=== PATIENT | male | born 1995 | race Asian ===

== ENCOUNTER 2024-04-08 00:35 | Emergency (ER) | payer OTHER, SELFPAY ==
[2024-04-08 00:58] VITALS: BP 125/82
--- NOTE | 2024-04-08 03:58 | ED.SKININJ ---
HPI-Injury
General
Chief Complaint: Bite
Source: patient
Exam Limitations: none
Time Seen by Provider: 04/08/24 03:54
History of Present Illness-Injury
Is pt an associate of [facility]?: No
Initial Injury comments:
See MDM
Past History
Past History
ED Past Medical History: None
ED Past Surgical History: None
Social History
Tobacco: Non-smoker
Personal: Single
Living: with family
Employment: Student
Family History
Family History: Other (Noncontributory)
Phy Exam
Physical Exam
Physical Exam:
See MDM
Course
Orders/Labs/Results
Orders:
Orders
04/08/24 03:58
Amoxicillin 875 mg/Clav 125 mg [Augmentin 875 mg/125 mg] 1 tablet PO NOW STA
Tetanus/Diphth/Acelpertussis [Adacel] 0.5 ml IM .ONCE ONE
Vital Signs
Initial and Last Documented VS:
Initial Vital Signs
Temp Pulse Resp BP Pulse Ox
99.2 F 73 20 125/82 97
04/08/24 00:58 04/08/24 00:58 04/08/24 00:58 04/08/24 00:58 04/08/24 00:58
Last Documented Vital Signs
Temp Pulse Resp BP Pulse Ox
99.2 F 73 20 125/82 98
04/08/24 00:58 04/08/24 00:58 04/08/24 00:58 04/08/24 00:58 04/08/24 00:58
MDM/Problems Addressed
Differential Diagnosis Includes:
HPI and MDM Narrative:
28-year-old male presenting for evaluation of multiple superficial cat scratches to his face. Patient is concerned he could have rabies. He is currently fostering feral cats in his garage. He picked 1 up and it scratched his face. Patient is
unsure about his tetanus shot.
We discussed that the rabies transmission is through saliva. I will update his tetanus and will start him on Augmentin given the cat scratches. Since the cat is in his garage, we discussed keeping an eye on the cat for the next 2 weeks or so and
to bring it directly to the vet if it dies suddenly or develops respiratory or swallowing issue
Physical exam
General: Well appearing and non-toxic
HEENT: protecting airway
Neck: appears supple
CV: No evidence of cyanosis
Resp: No accessory muscle use
Abd: Non-distended
Extremities: No deformities
Neuro: alert
Psych: Normal affect
Skin: Extremely superficial scratches to his right cheek and right lower lip
Problems Addressed including Acute and Chronic Conditions affecting care:
1. Cat scratch
Acuity: acute
Prognosis: stable
Details: Will update tetanus and start Augmentin
Drug therapy (if applicable): OTC meds, please see d/c instruction regarding Rx drugs
Amount and/or Complexity of Data Reviewed
Clinical info obtained from: Patient
External data reviewed: N/A
Labs I independently reviewed (but not limited to): N/A
Radiology: N/A
Pulse Ox: not hypoxic
EKG independently reviewed: N/A
[facility] Director: N/A
Critical Care: N/A
Risk of Complication:
Social Determinants of health: Good social support
Discussed with other providers: N/A
Escalation of Care includes Admit/Obs: After being observed in the Emergency Department, pt stable for discharge.
Occasional wrong word or 'sound a like' substitutions may have occurred due to the inherent limitations of voice recognition software. Read the chart carefully and recognize, using context, where substitutions have occurred.
*Critical Care Note
Total Time (30-74mins, 75-104mins- exclusive of procedures): Not Applicable
ED Attending Note
-
Portions of this chart may have been created with voice recognition software.� Occasional wrong word or��sound alike� substitutions may have occurred due to the inherent limitations of voice recognition software.
Discharge Plan
Departure
Patient Disposition: Home (Routine Discharge)
Date of Disposition: 04/08/24
Time of Disposition: 04:01
Patient with high blood pressure during this ER visit?: No
Discharge Problem:
Cat scratch of face
Prescriptions:
New
amoxicillin-pot clavulanate 875-125 mg tablet
1 tab PO BID Qty: 14 0RF
No Action
tamsulosin 0.4 MG capsule
0.4 mg PO DAILY Qty: 14 0RF
multivitamin 1 EACH tablet
1 ea PO DAILY
hydrocodone-acetaminophen 1 EACH tablet
1 ea PO Q4HPRN PRN (Reason: moderate pain) Qty: 12 0RF
ketorolac 10 MG tablet
10 mg PO QID Qty: 12 0RF
ondansetron 4 MG tablet,disintegrating
4 mg PO QIDPRN PRN (Reason: nausea/vomiting) Qty: 20 0RF
Activity Restrictions/Additional Instructions:
Watch for signs of infection: fever over 100.5', increasing pain, red streaks around wound, swelling, or increasing drainage of pus. If any of these happen, return to ED promptly. Make sure that you take all your antibiotics as directed and finish
your prescription even if you feel better before the bottle is empty
If the cats unexpectedly or develop breathing or swallowing issues, bring it to the vet immediately for rabies testing.
Interventions
Interventions:
*Risk Screen - Suicide Last Done: 04/08/24 00:58
*General Assessment Last Done: 04/08/24 00:58
*Neglect/Abuse Screening Last Done: 04/08/24 00:58
ED- Fall Risk Assessment Last Done: 04/08/24 00:58
*ED COVID-19 Vaccine History Last Done: 04/08/24 00:58
Discharge Date and Time
Print Language: BENGALI
[2024-04-08] MEDS: AUGMENTIN 875 MG/125 MG 1 TABLET PO (04:44)
[2024-04-08] MEDS: ADACEL 0.5 ML IM (04:44)
[2024-04-08 05:04] VITALS: BP 105/63
== END 2024-04-08 05:07 | disposition home or self-care (01) ==
LOC: EMR 00:35
PROVIDERS: EMERGENCY PHYSICIAN Student in an Organized Health Care Education/Training Program; FAMILY PHYSICIAN Family Medicine
DX: S00.81XA Abrasion of other part of head, initial encounter (principal); W55.03XA Scratched by cat, initial encounter; Z23 Encounter for immunization
CPT/HCPCS: 99282; 90471; 90715

== ENCOUNTER 2024-12-13 16:12 | Inpatient (IN) | payer OTHER, SELFPAY ==
[2024-12-13] VITALS (9 sets, daily range): BP systolic 107–144; BP diastolic 65–97; BMI 24.8
--- NOTE | 2024-12-13 12:58 | ED.GENMED ---
History of Present Illness
General
Chief Complaint: Abdominal Pain
Source: patient and family
Exam Limitations: none
Time Seen by Provider: 12/13/24 12:52
History of Present Illness
History of Present Illness:
29-year-old male woke with sudden left lower quadrant pain about 9 AM. No radiation to the back. No vomiting. No urinary symptoms or change in bowels. No history of similar pain. He does have a remote history of kidney stones however. No
preceding pain management
Past History
Past History
ED Past Medical History: None
ED Past Surgical History: None
Social History
Tobacco: Non-smoker
Personal: Single
Living: with family
Employment: Student
Family History
Family History: Other (Noncontributory)
Review of Systems
Review of Systems
All Other Systems: Not applicable
Constitutional: Denies fever
ABD/GI: Denies vomiting, diarrhea, bloody stools or black stools
: Reports no symptoms
Phy Exam
Physical Exam
Physical Exam:
GENERAL: Alert and oriented in no apparent distress, but appears moderately uncomfortable
EYE: Orbits normal.
NECK: Supple
CARDIAC: Regular rate and rhythm without any obvious murmurs.
LUNGS: Clear breath sounds,normal
ABDOMEN: Soft, no distention. Decreased bowel sounds however. Moderate tenderness left lower quadrant. No rebound or guarding no mass or hernia.
: Testicles normal. Nontender.
NEUROLOGICAL: Alert and oriented , grossly non-focal
SKIN: Warm and dry, no rash or lesion, no discoloration, skin intact.
MUSCULOSKELETAL: No edema,no deformity.Good color
PSYCH: Normal and appropriate interaction.
Course
Orders/Labs/Results
Orders:
Orders
12/13/24 12:58
IV Insert/Care/Rem.- Treatment PRN
0.9% Sodium Chloride 1000 ml [Nss] 1,000 ml IV BOLUS
12/13/24 13:07
Complete Blood Count/With Diff Urgent
Comprehensive Metabolic Panel Urgent
Lipase Urgent
Urinalysis Reflex To Culture Urgent
Date Specimen was Collected: 12/13/24
Time Specimen was Collected: 13:00
Urine Microscopic Reflex Cult Urgent
Urine Culture Urgent
DERIC Source: U
Specimen Description:
Date Specimen was Collected: 12/13/24
Time Specimen was Collected: 13:00
12/13/24 13:10
Ondansetron Injectable [Zofran] 4 mg .ROUTE .STK-MED ONE
12/13/24 13:11
Ketorolac [Toradol] 15 mg .ROUTE .STK-MED ONE
Ketorolac [Toradol] 15 mg IV NOW STA
Ondansetron Injectable [Zofran] 4 mg IV NOW STA
12/13/24 13:12
CT Abd/pel Without Iv Or Oral Urgent
Comment:
Reason For Exam: Sudden left lower quadrant pain
Ondansetron Injectable [Zofran] 4 mg IV NOW STA
12/13/24 14:01
0.9% Sodium Chloride 1000 ml [Nss] 1,000 ml IV BOLUS
Cefepime HCl [Maxipime] 2,000 mg IV NOW STA
12/13/24 14:22
Blood Culture Q30M
DERIC Source: Blood/Venous
Specimen Description:
Blood Culture Q30M
DERIC Source: Blood/Venous
Specimen Description:
12/13/24 15:15
Admit/Transfer Patient As Directed
Co-Sign Provider:
Level of Care: Inpatient admission
Assign to:: Medical/Surgical
Physician / Group: katharine
Diagnosis: ureter stone/UTI
Reason for Hospitalization: ureter stone
UTI
Expected length of stay greater than two midnights?: Yes
ELOS- Estimated Length of Stay in days: 3
I certify the patient meets the requirements for IP care: Yes
Code Status As Directed
Resuscitation Status: Full Code
PRN Pain Medication Management As Directed
May give lesser potent ordered pain med per pt: Yes
preference::
Protocol:: Medication orders for pain may be administered in a
manner that supports deferring to patient preference
when the pt is:
- Requesting an ordered lesser potent pain medication.
Least to most potent pain medications are defined
as: acetaminophen < NSAID < tramadol < opioids
(morphine, oxycodone, hydromorphone).
- Requesting a lesser dose of the same medication IF
ORDERED.
- Requesting a less intrusive route of administration
if both routes are prescribed by the provider (PO <
IV).
12/13/24 17:06
0.9% Sodium Chloride 1000 ml [Nss] 1,000 ml IV 80 mls/hr
Bisacodyl [Dulcolax] 10 mg RECTAL [id number] PRN
Docusate W/Senna [Senokot-S] 1 tablet PO BIDPRN PRN
Polyethylene Glycol Powder [Miralax] 17 grams PO DAILYPRN PRN
12/13/24 17:06
UROLOGY CONSULT Routine
Consulting Provider: Vikram Toro
Was physician already notified: Yes
Activity As Directed
Activity Level: As Tolerated
Pneumatic Compression Sleeves As Directed
Type: Knee high
Strain Urine As Directed
Vital Signs As Directed
Frequency: Per unit guidelines
DX Deep Vein Thrombosis Video Routine
12/14/24 Breakfast
NPO
Allow oral meds: Yes
Allow clear liquids: No
Basic Metabolic Panel IN AM
Complete Blood Count/No Diff IN AM
12/15/24 06:00
Basic Metabolic Panel IN AM
12/16/24 06:00
Basic Metabolic Panel IN AM
Abnormal Lab Results
12/13/24
13:07
WBC 12.5 H 10^3/uL
(4.8-10.8)
MCH 31.5 H pg
(27.0-31.0)
Absolute Neuts (auto) 10.5 H 10^3/uL
(1.4-6.5)
Absolute Lymphs (auto) 1.1 L 10^3/uL
(1.2-3.4)
Absolute Monos (auto) 0.7 H 10^3/uL
(0.1-0.6)
Neutrophils % 84.5 H %
(42.2-75.2)
Lymphocytes % 8.7 L %
(20.5-51.1)
Carbon Dioxide 21 L mmol/L
(22-30)
Creatinine 1.4 H mg/dL
(0.7-1.3)
Glucose 110 H mg/dl
(70-99)
Total Protein 8.7 H g/dl
(6.3-8.2)
Albumin 5.1 H g/dl
(3.5-5.0)
Urine Ketones 3+ A
(Negative)
Ur Occult Blood Reflex 4+ A
(Negative)
Urine Nitrite (Reflex) Positive A
(Negative)
Urine Bilirubin 1+ A
(Negative)
Leukocyte Esterase Rfl 2+ A
(Negative)
Urine RBC >100 A /HPF
(0-2)
Urine Bacteria (Reflex) Moderate A
(Negative)
Urine Albumin (Reflex) 4+ A
(Neg - Trace)
12/13/24 13:07
12/13/24 13:07
Vital Signs
Initial and Last Documented VS:
Initial Vital Signs
Temp Pulse Resp BP Pulse Ox
97.7 F 67 17 124/76 99
06/17/25 12:32 12/13/24 12:32 12/13/24 12:32 12/13/24 12:32 12/13/24 12:32
Last Documented Vital Signs
Temp Pulse Resp BP Pulse Ox
98.5 F 85 16 115/76 99
12/13/24 17:22 12/13/24 17:22 12/13/24 17:22 12/13/24 17:22 12/13/24 17:22
MDM/Problems Addressed
Differential Diagnosis Includes:
Patient with sudden onset of symptoms. Because of this suddenness I am relatively suspicious of a kidney stone. History of kidney stones. However he is more tender than I would expect purely from a kidney stone. Would have to consider
diverticulitis perforation etc. Workup in progress.
*Pulse Oximetry
Patient hypoxic: no (99%)
*Critical Care Note
Total Time (30-74mins, 75-104mins- exclusive of procedures): Not Applicable
Data Reviewed
Review of Other/Old Records Reveals: Labs, Radiology Studies (Previous kidney stone) and Operative Reports (Colonoscopy report)
Update Note
Update Note:
1310... Patient clearly has gross hematuria very likely this is a kidney stone issue with history and behavior pain. Will give Toradol Zofran changed to plain CT scan.
1405.... Patient rechecked. Appears much more comfortable. However urinalysis appears positive for UTI. Relatively high suspicion for kidney stone will give a dose of cefepime check blood cultures pending CT scan
1500... 3 mm obstructing stone with a positive urine. Urology and hospitalist contacted. Family updated
ED Attending Note
-
Portions of this chart may have been created with voice recognition software.� Occasional wrong word or��sound alike� substitutions may have occurred due to the inherent limitations of voice recognition software.
Discharge Plan
Departure
Patient Disposition: Admit
Date of Disposition: 12/13/24
Time of Disposition: 15:01
Presentation/result/management discussed w/ accepting MD/DO: Urology
Discharge Problem:
Obstructing kidney stone, Urinary tract infection
Interventions
Interventions:
*Risk Screen - Suicide Last Done: 12/13/24 12:33
*General Assessment Last Done: 12/13/24 12:33
*Neglect/Abuse Screening Last Done: 12/13/24 12:33
*ED- Fall Risk Assessment Last Done: 12/13/24 12:45
*ED COVID-19 Vaccine History Last Done: 12/13/24 12:33
*Nursing Disposition Last Done: 12/13/24 17:29
EJ-Xliurk-Iiyqrkfbxf Assessment Last Done: 12/13/24 12:45
Discharge Date and Time
Discharge Date/Time: 12/13/24 17:30
[2024-12-13] MEDS: ZOFRAN 4 MG IV (13:12)
[2024-12-13] MEDS: TORADOL 15 MG IV (13:13)
[2024-12-13] MEDS: NSS 1000 IV ×2 (13:13→14:13)
[2024-12-13 13:23] LABS: % Basophils 0.4 % (0-2); % Eosinophils 0.3 % (0-6); % Immature Granulocytes 0.2 % (0-0.5); % Lymphocytes 8.7 % (20.5-51.1); % Monocytes 5.9 % (1.7-9.3); % Neutrophils 84.5 % (42.2-75.2); Absolute Basophils 0.1 10^3/uL (0-0.2); Absolute Lymphocytes 1.1 10^3/uL (1.2-3.4); Absolute Monocytes 0.7 10^3/uL (0.1-0.6); Absolute Neutrophils 10.5 10^3/uL (1.4-6.5); Hematocrit 47.8 % (39.0-52.0); Hemoglobin 16.9 g/dL (13.0-18.0); Mean Corp Hgb Conc. 35.4 g/dL (33.0-37.0); Mean Corpuscular Hgb 31.5 pg (27.0-31.0); Mean Corpuscular Volume 89.2 fL (80.0-94.0); Mean Platelet Volume 9.1 fL (7.4-10.4); Nucleated Red Blood Cells % 0 % (-); Platelet Count 236 10^3/uL (130-400); Red Blood Cell Count 5.36 10^6/uL (4.70-6.10); Red Cell Dist. Width 12.5 % (11.5-14.5); White Blood Cell Count 12.5 10^3/uL (4.8-10.8)
[2024-12-13 13:36] LABS: Urine Albumin 4+ (Neg - Trace); Urine Bilirubin 1+ (Negative); Urine Character Cloudy (Clear); Urine Color Brown; Urine Glucose Negative (Negative); Urine Ketone 3+ (Negative); Urine Leukocyte 2+ (Negative); Urine Nitrite Positive (Negative); Urine Occult Blood 4+ (Negative); Urine Specific Gravity 1.025 (<1.030); Urine Urobilinogen 1+ (Neg - 1+)
[2024-12-13 13:42] LABS: ALT (SGPT) 17 U/L (0-50); AST (SGOT) 21 U/L (17-59); Albumin 5.1 g/dl (3.5-5.0); Alkaline Phosphatase 115 U/L (38-126); Blood Urea Nitrogen 15 mg/dl (9-20); Calcium 10.1 mg/dl (8.4-10.2); Carbon Dioxide 21 mmol/L (22-30); Chloride 107 mmol/L (98-107); Glucose 110 mg/dl (70-99); Lipase 62 U/L (23-300); Potassium 3.9 mmol/L (3.5-5.1); Sodium 141 mmol/L (135-145); Total Bilirubin 1.2 mg/dl (0.2-1.3); Total Protein 8.7 g/dl (6.3-8.2); eGFR > 60.00
[2024-12-13] MEDS: MAXIPIME 2000 MG IV (14:12)
[2024-12-13 14:50] LABS: Urine Bacteria Moderate (Negative); Urine Red Blood Cell >100 /HPF (0-2)
[2024-12-13 14:51] LABS: Urine Squamous Cell 0-2 /LPF (Few); Urine White Cell 0-2 /HPF (0-5)
--- NOTE | 2024-12-13 15:04 | HPS.HSE ---
Family Physician
-
Family Physician:
Chief Complaint
-
left flank pain
History of Present Illness
29-year-old male with PMH for kidney stones, migraines presented to us with left lower quadrant pain about 9 AM. No radiation to the back. he vomited once. he had blood urine this morning. Patient denied any dysuria, urinary frequency or urgency.
Patient denied any fever, chills, headache, dizzy or syncope. Patient denied any chest pain or short of breath. Patient denied any diarrhea.
CT with impression of ureteral stones. However noted to have positive urinalysis. Patient received a dose of IV cefepime in the ER. Admitting for further management
Medical History
Past Medical History
Past Medical History: Reports Other
Additional Past Medical History:
Kidney stone\\
Migraines
Past Surgical History: Reports None
Social History
Tobacco: Non-smoker
Alcohol: Occasional
Drug: None
Living: With Family
Family History
Family History: Not pertinent
Allergies / Home Medications
Allergies reflects when Allergies were last updated in [facility].
Home Medications with original date entered in [facility]
Allergy/Medication List:
Allergies
Allergy/AdvReac Type Severity Reaction Status Date / Time
No Known Allergies Allergy Verified 12/13/24 12:32
Home Medications
erenumab-aooe 140 mg/mL subcutaneous auto-injector (Aimovig Autoinjector) 140 mg SC QMONTH 12/13/24
Review of Systems
-
Constitutional: Reports No Symptoms
EENT: Reports No Symptoms
Respiratory: Reports No Symptoms
Cardiac: Reports No Symptoms
Abdomen/GI: Reports Other (Left lower quadrant)
: Reports Bleeding
Musculoskeletal: Reports No Symptoms
Skin: Reports No Symptoms
Neurological: Reports No Symptoms
Endocrine: Reports No Symptoms
Hematologic/Lymphatic: Reports No Symptoms
Psych: Reports No Symptoms
Physical Exam
Vital Signs
Vital Signs
Temp Pulse Resp BP Pulse Ox
97.7 F 67 17 122/68 100
12/13/24 12:32 12/13/24 12:32 12/13/24 12:32 12/13/24 14:00 12/13/24 14:15
Physical Exam
General: Well Developed, Well Nourished and No Apparent Distress
HEENT: NormoCephalic, Moist mucous membranes and Atraumatic
Respiratory: Clear
Cardiac: S1/S2 and Regular Rhythm; No Murmur or Rub
GI: Soft, Non Tender, Non Distended and Normal Bowel Sounds; No Organomegaly
Rectal: Deferred by Provider
Musculoskeletal: No Clubbing, No Cyanosis and No Edema
Skin: No Rash
Neuro: AO x 3 and Nonfocal/grossly intact
Psych: Calm
Laboratory Results
-
12/13/24 13:07
12/13/24 13:07
Laboratory Results
Total Bilirubin 1.2 mg/dl (0.2-1.3) 12/13/24 13:07
AST 21 U/L (17-59) 12/13/24 13:07
ALT 17 U/L (0-50) 12/13/24 13:07
Alkaline Phosphatase 115 U/L (38-126) 12/13/24 13:07
Lipase 62 U/L (23-300) 12/13/24 13:07
Data Reviewed
-
CT Scan: Report Reviewed by me
Lab Data: Labs Reviewed by me
Impression/Plan
-
#3mm left ureter stone/UTI
-wbc 12.5
-CT abdomen pelvis with 3 mm calculus in the proximal left ureter with mild left renal collecting system dilatation and minimal left perinephric stranding.Small nonobstructing left renal calculus.
- IV cefepime continue
- Blood culture sent from ER
-will keep patient NPO
-hydrate with fluids
-Tylenol prn for fever or pain
-Dilaudid prn for pain
-strain urine
-keep patient NPO
- Urology consulted
#acute kidney injury likely dehydration
-fluids continued
-BMP n am
#History of migraine
-on erenumab as outpatient
# DVT prophylaxis SCDs
-
# CODE STATUS
-Full code
--- NOTE | 2024-12-13 15:15 | HP.FOC2 ---
Focused History & Physical
Chief Complaint
HPI:
Chief Complaint: Left Ureteral Stone; suspected UTI
HPI / Indication for Planned Procedure: ED not: '29-year-old male woke with sudden left lower quadrant pain about 9 AM. No radiation to the back. No vomiting. No urinary symptoms or change in bowels. No history of similar pain. He does have a
remote history of kidney stones'
Relevant Past Medical History: Other (kidney stone; migraines)
Relevant Social History: Negative
Relevant Family History: Negative
Relevant Past Surgical History: Negative
Medication
See Medication form for detailed medications: Yes
Medication List (including Herbals & OTC):
erenumab-aooe 140 mg/mL subcutaneous auto-injector (Aimovig Autoinjector) 140 mg SC QMONTH 12/13/24
Medications Reviewed: Yes
Allergies and Reactions
Patient has Allergies: No
Noted Allergies and Reactions:
Allergy/AdvReac Type Severity Reaction Status Date / Time
No Known Allergies Allergy Verified 12/13/24 12:32
Pertinent Physical Exam
All Other Systems: Negative
Head/Neck: Normal
Lungs: Normal
Heart: Normal
Abdomen: Normal
Extremities: Normal
Neurological: Normal
Diagnosis / Assessment
Left Ureteral Stone
suspected UTI w/o sign of sepsis
Plan / Procedure
OR if stone fails to pass or sepsis develops
--- NOTE | 2024-12-13 15:56 | W.PN.UPDATE ---
Update Note
Progress Note Update
This is an addendum to H&P written by Mary Bowers on 12/13/2024. �Patient seen and examined independently with [employer].
29-year-old male past medical history of migraines, kidney stones, presenting with left lower quadrant pain since this morning. �Vomiting. �Bloody urine.
Labs show leukocytosis. �Creatinine 1.4.
CT abdomen pelvis shows approximate 3 mm calculus in the proximal left ureter with mild left renal collecting system dilatation and minimal left perinephric stranding.
Urinalysis shows +2 leukocyte Estrace, 0-2 white cells, positive nitrates, cloudy urine.
Patient with obstructive left ureteral calculus with surrounding inflammation.
IV fluids. �Blood cultures pending. �Urine culture pending. �Ceftriaxone.� Strain urine. Urology consulted. �N.p.o. past midnight.
[2024-12-13] MEDS: NORMOSOL-R/PLASMALYTE-A 1000 IV ×2 (17:40→23:47)
[2024-12-13] MEDS: STERILE WATER FOR INJECTION 10 ML IV (20:24)
[2024-12-13] MEDS: HEPARIN 5000 UNITS SC (20:24)
[2024-12-13] MEDS: ROCEPHIN 1000 MG IV (20:24)
[2024-12-13] MEDS: FLOMAX 0.4 MG PO (20:26)
--- NOTE | 2024-12-14 04:23 | DOWNTIME ---
Addendum entered by Leola Lea RN 12/14/24 14:20:
Correction: Downtime was 12/14/2024 from 0100 to 12/14/2024 at 0415
Original Note:
There was a [employer] Downtime on 12/13/2024 from 0100 to 12/14/2024 at 0415. Downtime documentation of patient's care, including medication administrations, has been reconciled in the electronic record per guidelines. Refer to the
patient's paper chart under the miscellaneous tab to see printed paper medication records and downtime forms.
[2024-12-14 07:22] LABS: Hematocrit 40.4 % (39.0-52.0); Hemoglobin 14.1 g/dL (13.0-18.0); Mean Corp Hgb Conc. 34.9 g/dL (33.0-37.0); Mean Corpuscular Hgb 31.5 pg (27.0-31.0); Mean Corpuscular Volume 90.2 fL (80.0-94.0); Mean Platelet Volume 9.4 fL (7.4-10.4); Platelet Count 213 10^3/uL (130-400); Red Blood Cell Count 4.48 10^6/uL (4.70-6.10); Red Cell Dist. Width 12.6 % (11.5-14.5); White Blood Cell Count 10.7 10^3/uL (4.8-10.8)
[2024-12-14 07:31] VITALS: BP 114/69
[2024-12-14 07:52] LABS: Blood Urea Nitrogen 12 mg/dl (9-20); Calcium 8.8 mg/dl (8.4-10.2); Carbon Dioxide 21 mmol/L (22-30); Chloride 112 mmol/L (98-107); Estimated Creatinine Clearance 98 ml/min; Glucose 91 mg/dl (70-99); Potassium 3.7 mmol/L (3.5-5.1); Sodium 143 mmol/L (135-145); eGFR > 60.00
[2024-12-14] MEDS: HEPARIN SC ×2 (07:59→20:31)
--- NOTE | 2024-12-14 08:20 | W.PN.URO.CBU ---
Today's Communication / Plan
-
Patient was advised to and scheduled for left ureteroscopy, stone removal and stenting due to the possibility of UTI which could progress to sepsis.
AMA, he refuses surgical intervention.
Surgery has been canceled.
Assessment / Plan
-
Left Ureteral Stone
suspected UTI w/o sign of sepsis
Diagnosis
-
Date of Service: December 14, 2024
-
Patient Diagnosis:
Left Ureteral Stone
suspected UTI w/o sign of sepsis
Subjective
-
'I feel better, no pain'
patient has not knowingly passed stone: 'I haven't strained my urine.'
Objective
-
Vital Signs
Temp Pulse Resp BP Pulse Ox
98.3 F 76 20 107/73 99
12/13/24 23:30 12/13/24 23:30 12/13/24 23:30 12/13/24 23:30 12/13/24 23:30
Intake and Output
12/13/24 12/14/24 12/15/24
06:59 06:59 06:59
Intake Total 1980 / 1980
Output Total 850 / 850
Balance 1130 / 1130
Intake:
Oral fluids 480 / 480
IV fluids (Total) 1500 / 1500
Output:
Urine, Voided 850 / 850
Laboratory Results
12/14/24 06:37
12/14/24 06:37
urine cx: pending
Physical Exam
-
General - well developed, well nourished, no acute distress
[2024-12-14] MEDS: BENADRYL 12.5 MG IV (09:48)
[2024-12-14] MEDS: NORMOSOL-R/PLASMALYTE-A 1000 IV ×2 (10:44→18:33)
--- NOTE | 2024-12-14 11:36 | W.PN.HOSP.TC ---
Today's Communication/Plan
-
Monitor vital signs closely
Continue with aggressive IV fluids
Continue with Flomax
Continue with antibiotic
Follow-up on the culture data
Assessment / Plan
Assessment / Plan
# Left ureteral stone
-CT abdomen pelvis with 3 mm calculus in the proximal left ureter with mild left renal collecting system dilatation and minimal left perinephric stranding.Small nonobstructing left renal calculus
-Repeat CAT scan on 12/14 with 3 mm calculus in the proximal left ureter stable in position with only minimal left renal collecting system dilatation. There is minimal left renal collecting system and proximal left ureteral dilatation essentially
stable comparison to prior study, calculus in the proximal left ureter is only minimally obstructing. Contrast is seen distally in normal caliber mid to distal left ureter.
- Blood culture sent from ER and pending
- UA noted and urine culture still pending
- hydrate with aggressive fluids
- Tylenol prn for fever or pain
- Dilaudid prn for pain
- strain urine-stressed importance of straining urine
- Urology consulted and they have recommended left ureteroscopy with stone removal and stenting which patient refused. Urology in the interim recommend to continue with Flomax and antibiotics
# Elevated creatinine likely secondary to renal stone and dehydration
-fluids continued
- Creatinine improved
#History of migraine
-on erenumab as outpatient
# DVT prophylaxis SCDs
-
# CODE STATUS
-Full code
Discussed with urology
Anticipated Discharge: 24 - 48 hours
Subjective/Interval History
-
Date of Service: December 14, 2024
Denies any flank pain
Patient refused surgery earlier today which is recommended by urology
Underwent repeat CAT scan with contrast leading to hives at the IV site and episode of vomiting
Denies any abdominal pain
Objective Data
-
Labs:
Laboratory Results
12/14/24
06:37
WBC 10.7
Hgb 14.1
Hct 40.4
Plt Count 213
Sodium 143
Potassium 3.7
Chloride 112 H
Carbon Dioxide 21 L
BUN 12
Creatinine 1.2
Glucose 91
Calcium 8.8
Vital Signs:
Vital Signs
Temp Pulse Resp BP Pulse Ox
98 F 76 14 114/69 98
12/14/24 07:31 12/14/24 07:31 12/14/24 07:31 12/14/24 07:31 12/14/24 07:31
I&O
12/13/24 12/14/24 12/15/24
06:59 06:59 06:59
Intake Total 1979
Output Total 850 / 850 550 / 550
Balance 1130 / 1130 -550 / -550
Physical Exam
-
General: Well Developed and No Apparent Distress
HEENT: Normocephalic, Atraumatic and Moist Mucous Membranes
Respiratory: Non Labored Respirations; Negative Accessory Resp Muscle Use
Cardiac: Negative Murmur, Rub or Gallop
GI: Soft, Nontender, Nondistended and Normal Bowel Sounds; Negative Organomegaly
Rectal: Deferred by Provider
Musculoskeletal: No Clubbing, No Cyanosis and No Edema
Skin: Negative Rash
Neuro: Awake, Alert, Oriented, AO x 3 and Nonfocal/Grossly Intact
Psych: Calm
[2024-12-14 15:05] VITALS: BP 121/61
--- NOTE | 2024-12-14 15:49 | CM ---
Met with patient to obtain information for assessment. Patient stated that he lives with his mother and father in a two story home with two steps to enter. He is independent with his ADLs, personal care, dressing and bathing. He can cook, clean, do
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 He can drive and can get himself to his appointments and do all of his own shopping. He has no DME. He has never had VN.
Patient has a prescription plan and uses, [facility] in [place] for all of his medications.
Patient's PCP is, not listed.
Plan: Case management will continue to follow and assist with discharge planning. Patient would like to return home with his parents when cleared.
[2024-12-14] MEDS: ROCEPHIN 1000 MG IV (20:30)
[2024-12-14] MEDS: STERILE WATER FOR INJECTION 10 ML IV (20:31)
[2024-12-14] MEDS: FLOMAX 0.4 MG PO (20:31)
[2024-12-14 22:45] VITALS: BP 120/56
[2024-12-15 01:04] LABS: Urine Albumin Negative (Neg - Trace); Urine Bilirubin Negative (Negative); Urine Character Clear (Clear); Urine Color Yellow; Urine Glucose Negative (Negative); Urine Ketone Negative (Negative); Urine Leukocyte Negative (Negative); Urine Nitrite Negative (Negative); Urine Occult Blood 4+ (Negative); Urine Specific Gravity 1.015 (<1.030); Urine Urobilinogen Negative (Neg - 1+)
[2024-12-15 01:28] LABS: Urine Squamous Cell None seen /LPF (Few); Urine White Cell 0-2 /HPF (0-5)
[2024-12-15 01:29] LABS: Urine Bacteria Few (Negative)
[2024-12-15] MEDS: NORMOSOL-R/PLASMALYTE-A 1000 IV (02:34)
[2024-12-15 07:59] VITALS: BP 104/64
[2024-12-15] MEDS: HEPARIN SC (08:10)
[2024-12-15 08:34] LABS: % Basophils 0.5 % (0-2); % Eosinophils 2.9 % (0-6); % Immature Granulocytes 0.2 % (0-0.5); % Lymphocytes 34.5 % (20.5-51.1); % Monocytes 6.8 % (1.7-9.3); % Neutrophils 55.1 % (42.2-75.2); Absolute Eosinophils 0.2 10^3/uL (0-0.7); Absolute Lymphocytes 2.9 10^3/uL (1.2-3.4); Absolute Monocytes 0.6 10^3/uL (0.1-0.6); Absolute Neutrophils 4.6 10^3/uL (1.4-6.5); Hematocrit 37.8 % (39.0-52.0); Hemoglobin 13.2 g/dL (13.0-18.0); Mean Corp Hgb Conc. 34.9 g/dL (33.0-37.0); Mean Corpuscular Hgb 31.4 pg (27.0-31.0); Mean Platelet Volume 9.4 fL (7.4-10.4); Nucleated Red Blood Cells % 0 % (-); Platelet Count 193 10^3/uL (130-400); Red Cell Dist. Width 12.6 % (11.5-14.5); White Blood Cell Count 8.3 10^3/uL (4.8-10.8)
[2024-12-15 09:00] LABS: Blood Urea Nitrogen 9 mg/dl (9-20); Calcium 8.8 mg/dl (8.4-10.2); Carbon Dioxide 26 mmol/L (22-30); Chloride 110 mmol/L (98-107); Estimated Creatinine Clearance 117 ml/min; Glucose 91 mg/dl (70-99); Potassium 3.7 mmol/L (3.5-5.1); Sodium 142 mmol/L (135-145); eGFR > 60.00
--- NOTE | 2024-12-15 11:01 | W.PN.URO.CBU ---
Today's Communication / Plan
-
patient is safe to pursue outpatient trial of stone passage
Assessment / Plan
-
Left Ureteral Stone
no UTI or sepsis
Diagnosis
-
Date of Service: December 15, 2024
-
Patient Diagnosis:
Left Ureteral Stone
Objective
-
Vital Signs
Temp Pulse Resp BP Pulse Ox
97.6 F 73 14 104/64 100
12/15/24 07:59 12/15/24 07:59 12/15/24 07:59 12/15/24 07:59 12/15/24 09:40
Intake and Output
12/14/24 12/15/24 12/16/24
06:59 06:59 06:59
Intake Total 1979 / 1979 2285 / 2285 240 / 240
Output Total 850 / 850 1949 / 1950
Balance 1130 / 1130 335 / 335 240 / 240
Intake:
Oral fluids 480 / 480 910 / 910 240 / 240
IV fluids (Total) 1500 / 1500 1375 / 1375
Output:
Urine, Voided 850 / 850 1949 / 1950
Other:
Number of approximated MODERATE 1
amounts of urine
Laboratory Results
12/15/24 07:56
12/15/24 07:56
urine and blood cx: negative
Physical Exam
-
General - well developed, well nourished, no acute distress
Chest - clear bilaterally
Abdomen - soft, non-tender, positive bowel sounds, no CVAT, no incisional pain or distention
Genitalia - normal
Rectal - normal
Skin - warm & dry with no rash
Neuro - AOx3, no motor deficits
Extremities - no clubbing, no cyanosis, no edema
Incision - clean, dry
Dressing - clean, dry, intact
[2024-12-15] MEDS: NORMOSOL-R/PLASMALYTE-A IV (11:11)
--- NOTE | 2024-12-15 11:35 | W.PN.HOSP.TC ---
Today's Communication/Plan
-
DC HOME
OP f/u
short course of abx/flomax per urology
Assessment / Plan
Assessment / Plan
# Left ureteral stone
-CT abdomen pelvis with 3 mm calculus in the proximal left ureter with mild left renal collecting system dilatation and minimal left perinephric stranding.Small nonobstructing left renal calculus
-Repeat CAT scan on 12/14 with 3 mm calculus in the proximal left ureter stable in position with only minimal left renal collecting system dilatation. There is minimal left renal collecting system and proximal left ureteral dilatation essentially
stable comparison to prior study, calculus in the proximal left ureter is only minimally obstructing. Contrast is seen distally in normal caliber mid to distal left ureter.
-Blood cultures remains negative. Urine culture with contamination.
- Status post IV fluids. Encourage patient to keep up with p.o. intake
- Tylenol prn for fever or pain
- strain urine-stressed importance of straining urine
- Urology consulted and they have recommended left ureteroscopy with stone removal and stenting which patient refused. Urology in the interim recommend to continue with Flomax and antibiotics and outpatient follow-up
# MILE likely secondary to renal stone and dehydration
-fluids continued
- Resolved
#History of migraine
-on erenumab as outpatient
# DVT prophylaxis SCDs
-
# CODE STATUS
-Full code
More than 30 minutes spent in discharge including
Final examination of the patient
Summarizing hospital stay
Instructions for continuing care to all relevant caregivers
Preparation of discharge records, prescriptions, and referral forms
Total time spent (in minutes): 52
Anticipated Discharge: Today
Subjective/Interval History
-
Date of Service: December 15, 2024
Denies any flank pain
Denies any hematuria
Denies any dysuria
Objective Data
-
Labs:
Laboratory Results
12/15/24
07:56
WBC 8.3
Hgb 13.2
Hct 37.8 L
Plt Count 193
Sodium 142
Potassium 3.7
Chloride 110 H
Carbon Dioxide 26
BUN 9
Creatinine 1.0
Glucose 91
Calcium 8.8
Vital Signs:
Vital Signs
Temp Pulse Resp BP Pulse Ox
97.6 F 73 14 104/64 100
12/15/24 07:59 12/15/24 07:59 12/15/24 07:59 12/15/24 07:59 12/15/24 09:40
I&O
12/14/24 12/15/24 12/16/24
06:59 06:59 06:59
Intake Total 1979 / 1979 2285 / 2285 240 / 240
Output Total 850 / 850 1949 / 1949
Balance 1130 / 1130 335 / 335 240 / 240
Physical Exam
-
General: Well Developed and No Apparent Distress
HEENT: Normocephalic, Atraumatic and Moist Mucous Membranes
Respiratory: Non Labored Respirations; Negative Accessory Resp Muscle Use
Cardiac: Negative Murmur, Rub or Gallop
GI: Soft, Nontender, Nondistended and Normal Bowel Sounds; Negative Organomegaly
Rectal: Deferred by Provider
Genito-urinary: No Costovertebral Tender
Musculoskeletal: No Clubbing, No Cyanosis and No Edema
Skin: Negative Rash
Neuro: Awake, Alert, Oriented, AO x 3 and Nonfocal/Grossly Intact
Psych: Calm
--- NOTE | 2024-12-15 11:37 | W.DCSUMMARY ---
Discharge Summary
Discharge Data
Date of Admission: 12/13/24
Date of Discharge: 12/15/24
-
Pending Results: No
Hospital Course
29-year-old male past medical history of migraine is presenting with complaint of left lower quadrant pain. Patient underwent CT abdomen pelvis with 3 mm calculus in the proximal left ureter with mild left renal collecting system dilatation and
minimal left perinephric stranding.Small nonobstructing left renal calculus. Patient was eval by urology who recommended patient to undergo left ureteroscopy with stone removal and stenting which patient refused. Urology ordered repeat CAT scan on
12/14 with 3 mm calculus in the proximal left ureter stable in position with only minimal left renal collecting system dilatation. There is minimal left renal collecting system and proximal left ureteral dilatation essentially stable comparison to
prior study, calculus in the proximal left ureter is only minimally obstructing. Contrast is seen distally in normal caliber mid to distal left ureter. Patient without any flank pain abdominal pain or suprapubic pain. Patient denies any dysuria,
hematuria. Patient was tolerating diet. Patient blood culture remain negative. Patient was afebrile. Per urology patient can be discharged home on p.o. antibiotics and Flomax with outpatient stone management. Patient was given urine strainer
and recommend to follow-up with urology for further outpatient stone management. Patient was also recommended return to ER if with return of flank pain, abdominal pain, fever, chills, hematuria and patient verbalized understanding.
Discharge Plan
-
Patient Disposition: Home (Routine Discharge)
Discharge Diagnosis/Procedures: Left ureteral stone
Condition: Fair
Diet: Regular
Activity: As tolerated
Driving Restrictions: As prior to admission
Referrals:
Vikram Toro MD [Active, Urology] - in one to two weeks
Referral Note: call to make appointment
UNKNOWN - PT DOES,NOT KNOW [Family Provider]
Prescriptions:
New
tamsulosin 0.4 mg Capsule
0.4 mg PO HS Qty: 30 0RF
oxycodone-acetaminophen [Percocet] 2.5-325 mg tablet
1 tab PO Q8H PRN (Reason: severe pain) Qty: 10 0RF
ketorolac 10 mg tablet
10 mg PO Q8H PRN (Reason: mod pain) 4 Days Qty: 12 0RF
cephalexin 500 mg capsule
500 mg PO Q6H 5 Days Qty: 20 0RF
Continued
Aimovig Autoinjector 140 mg/mL Auto-Injector
140 mg SC QMONTH
Discharge Orders:
Discharge Patient (As Directed); Ordered 12/15/24
Ordered By: Yusef Peter
Discharge Date and Time
Discharge Date/Time: 12/15/24 13:01
Print Language: [place]
--- NOTE | 2024-12-15 11:47 | W.[place]-PDMP ---
[place]PD[place]
-
Checked the [place]- Prescription Drug Monitoring Program website, no red flags identified; safe to proceed with prescription.
[2024-12-15 12:22] VITALS: BP 113/68
== END 2024-12-15 13:01 | disposition home or self-care (01) | DRG 694 ==
LOC: 4 EAST ACU 16:12
PROVIDERS: Nurse Practitioner Gerontology; Registered Nurse; ADMITTING PHYSICIAN Hospitalist; ATTENDING PHYSICIAN Hospitalist; EMERGENCY PHYSICIAN Emergency Medicine
DX: N20.1 Calculus of ureter (principal); N17.9 Acute kidney failure, unspecified; Z87.442 Personal history of urinary calculi; G43.909 Migraine, unspecified, not intractable, without status migrainosus; E86.0 Dehydration
CPT/HCPCS: 74176; 74178; 80048; 80053; 81003; 81015; 83690; 85025; 85027; 87040; 87086; 96361; 96374; 96375; 99284; Q9967